=== PATIENT | female | born 1995 | race African-American/Black ===

== ENCOUNTER 2019-03-16 10:06 | Observation (INO) | payer MEDICAID ==
[~2019-03-16] VITALS: Ht 167.6 cm; Wt 113.4 kg
[2019-03-16] MEDS ORDERED: PREN1TAB78 MT (10:59)
[2019-03-16] MEDS ORDERED: ACYC200C PO (10:59)
[2019-03-16] MEDS ORDERED: FERR325T6 MT (10:59)
== END 2019-03-16 11:25 | disposition home or self-care (01) ==
LOC: 8 EST LDRP 10:06
PROVIDERS: ADMIT Specialist; ATTEND Specialist
DX: O42.92 Full-term premature rupture of membranes, unspecified as to length of time between rupture and onset of labor (principal); Z3A.37 37 weeks gestation of pregnancy
CPT/HCPCS: 99281; G0378

== ENCOUNTER 2019-09-21 10:32 | Emergency (ER) | payer MEDICAID ==
[~2019-09-21] VITALS: Ht 167.6 cm; Wt 103.0 kg
[~2019-09-21 10:32] MED LIST: ACYC200C PO; FERR325T6 MT; PREN1TAB78 MT
[2019-09-21 11:53] LABS: CHLORIDE 107 mEq/L (98-107)
[2019-09-21 11:59] LABS: BASOPHILS % 1.3 % (0.0-2.0); EOSINOPHILS % 3.7 % (0.0-5.0); HEMATOCRIT. 34.1 % (36.0-48.0); LYMPHOCYTES % 52.2 % (20.0-50.0); MEAN CORPUSCULAR HEMOGLOBIN 25.4 pg (28.0-32.0); MEAN CORPUSCULAR VOLUME 78.8 fL (81.0-99.0); MEAN PLATELET VOLUME 8.4 fl (7.4-10.4); MONOCYTES % 5.8 % (2.0-8.0); PLATELET 371 x1000/uL (130-400); RED BLOOD CELL COUNT 4.32 mill/uL (4.2-5.4); RED CELL DISTRIBUTION WIDTH 14.1 % (11.6-14.6)
[2019-09-21] MEDS ORDERED: KETOROLAC 30MG/ML VIAL IV ONE (12:45)
[2019-09-21] MEDS ORDERED: METOCLOPRAMIDE HCL 10MG/2ML VIAL IV ONE (12:45)
[2019-09-21 13:00] VITALS: BP 120/60
== END 2019-09-21 13:51 | disposition home or self-care (01) ==
LOC: ER 10:32
DX: R51 Headache (principal); R03.0 Elevated blood-pressure reading, without diagnosis of hypertension
CPT/HCPCS: 36415; 80053; 81025; 85025; 86850; 86900; 86901; 96374; 96375; 99284; J1885; J2765

== ENCOUNTER 2023-05-16 09:31 | Emergency (ER) | payer MEDICAID ==
[~2023-05-16] VITALS: Ht 170.2 cm; Wt 68.0 kg
[~2023-05-16 09:31] MED LIST changes: -ACYC200C PO; +ACYC200C31 PO
[2023-05-16 09:47] VITALS: O2SAT 100
[2023-05-16 10:18] LABS: EOSINOPHILS % 0.4 % (0.0-5.0); HEMATOCRIT. 23.5 % (36.0-48.0); MEAN CORPUSCULAR HEMOGLOBIN 19.1 pg (28.0-32.0); MEAN CORPUSCULAR HGB CONC 28.6 g/dL (31.0-37.0); MEAN CORPUSCULAR VOLUME 66.8 fL (81.0-99.0); MEAN PLATELET VOLUME 7.8 fl (7.4-10.4); MONOCYTES % 4.2 % (2.0-8.0); NEUTROPHILS % 49.4 % (40.0-76.0); PLATELET 303 x1000/uL (130-400); RED BLOOD CELL COUNT 3.52 mill/uL (4.2-5.4); WHITE BLOOD COUNT 3.8 x1000/uL (4.5-11.0)
[2023-05-16 10:24] LABS: ADD RBC MORPHOLOGY YES; DIFFERENTIAL COMMENT 1
[2023-05-16 10:27] LABS: HEMOGLOBIN. 6.7 g/dL (12.0-16.0)
[2023-05-16 10:53] LABS: ALANINE AMINOTRANSFERASE < 7 IU/L (10-49); ALBUMIN 3.8 g/dL (3.2-4.8); ASPARTATE AMINOTRANSFERASE 10 IU/L (<34); BILIRUBIN TOTAL 0.3 mg/dL (0.1-1.0); CALCIUM 8.8 mg/dL (8.7-10.4); CARBON DIOXIDE 25 mEq/L (21-32); CHLORIDE 111 mEq/L (98-107); CREATININE 0.6 mg/dL (0.6-1.0); GLUCOSE 89 mg/dL (70-105); POTASSIUM 3.9 mEq/L (3.5-5.1); PROTEIN TOTAL 6.9 g/dL (6.0-8.3); SODIUM 141 mEq/L (136-145); UREA NITROGEN BLOOD 10 mg/dL (9-23)
[2023-05-16 12:17] LABS: HYPOCHROMASIA 1+; MICROCYTOSIS 3+; PLATELET ESTIMATE NORMAL
[2023-05-16 12:19] LABS: ANISOCYTOSIS 2+
[2023-05-16 13:05] VITALS: BP 119/54; PULSE 90; RESP 18; TEMP 98.6
== END 2023-05-16 13:32 | disposition home or self-care (01) ==
LOC: ER 09:31
DX: D64.9 Anemia, unspecified (principal); Z98.890 Other specified postprocedural states
CPT/HCPCS: 36415; 80053; 85025; 86850; 86900; 93005; 99284